=== PATIENT | male | born 2000 | race Caucasian/White ===

== ENCOUNTER 2019-05-26 22:14 | Emergency (ER) | payer OTHER ==
[~2019-05-26] VITALS: Ht 175.3 cm; Wt 81.8 kg
[2019-05-26 23:04] LABS: STREP SCREEN NEGATIVE
[2019-05-27] MEDS ORDERED: ZITHROMAX 250M250 MG PO (00:28)
[2019-05-27 00:40] VITALS: BP 127/78; PULSE 96; TEMP 98.2
== END 2019-05-27 00:44 | disposition home or self-care (01) ==
LOC: COL.ER 22:14
PROVIDERS: Nurse Practitioner Primary Care
DX: J06.9 Acute upper respiratory infection, unspecified (principal); J03.90 Acute tonsillitis, unspecified